=== PATIENT | female | born 1970 | race Caucasian/White ===

== ENCOUNTER → 2016-12-13 | Outpatient (REF) | payer MEDICARE ==
[2016-12-13 15:02] LABS: BILIRUBIN,URINE Negative (Negative); CLARITY,URINE Clear; GLUCOSE, URINE (UA) Negative (Negative); LEUKOCYTE ESTERASE ,URINE Negative (Negative); PH,URINE 5.5 (5.0 - 8.0); UROBILINOGEN,URINE 0.2 mg/dL (0.2-1.0)
[2016-12-13 15:14] LABS: COLOR,URINE Dark Yellow
[2016-12-13 15:48] LABS: URINE CENTRIFUGED VOLUME 12 mL
== END ==
LOC: LAB 14:24
PROVIDERS: ATTEND Family Medicine
DX: R30.0 Dysuria (principal)
CPT/HCPCS: 81003; 81015; 87077; 87088; 87186

== ENCOUNTER 2017-03-08 12:04 | Outpatient (RCR) | payer MEDICARE ==
[~2017-03-08 12:04] MED LIST: ABCT PO; ACET650T41 PO; ADAL10SY SQ; AMOX-358 PO; AZAT50TA PO; CALC600T12 PO; CEPH-507 PO; DIVA500T7; DVL500TEC PO; EPIN0.3P2 IM; EST075TD TD; ESTR1TAB15; FAMO20TA13 PO; FLC1T PO; FLUV100C; FLVX50T PO; HYDROXYSUT PO; IBUP200C PO; MULT-593 PO; NAPR250T PO; PHEN-640 PO; PRED10TA PO; PRED20TA PO; SULF500T7 PO; TRM50T PO; [UNRECOGNIZED DRUG - OTHER]
--- NOTE | 2017-03-09 09:27 | PT/OT/ST INITIAL EVALUATION ---
Department of Health and Human Services Form Approved Health Care Financing Administration OMB No. [id number] PLAN OF CARE/ASSESSMENT FOR OUTPATIENT REHABILITATION (Complete for Initial Claims Only) 1. PATIENT'S NAME Yumiko Scales 2. ACC # [id number] 3. KRISTIN DUKES 4. PROVIDER NO. [id number] 5. TYPE: PT 6. PRIOR HOSPITALIZATION None 7. PRIMARY DX Rheumatoid arthritis involving both feet and knees. 8. SECONDARY DX Chronic pain. 9. ONSET DATE A couple of years ago. 10. REFERRAL DATE 02/27/2017 11. SOC. DATE 03/08/2017 12. TIME OF EVAL 11:00 a.m. 12. REFERRING PHYSICIAN Warren Sheehan MD 13. CHARGES/UNITS Evaluation 14. G CODES CH 15. PRIOR LEVEL OF FUNCTION; PERTINENT HISTORY (Prior therapy results, reason for referral.) S: Reason for referral: The patient was referred to physical therapy by Dr. Sheehan with the diagnosis of rheumatoid arthritis involving both feet and knees and fibromyalgia and chronic pain. Description/mechanism of injury: The patient reports that she has flare ups at her knees and feet and is very fearful and insecure of falling. The patient has carried a cane, however, she does not know if she is using it correctly and wants to be instructed on proper gait training to help improve her balance and mobility. The patient is a farm . She lives in the counter in an older 3-story home. The patient does report pain ascending and descending stairs. The patient notes that her pain does change with changes in the weather. The patient works as a assistant director of security and is able to sit regularly throughout her day. Pain level: Current pain rating is 5/10. Past medical history: Includes a left lateral release and Bakers cyst removal at her knee. Current medications: See attached sheet. Personal health rating: Rates overall health as good. Patient's Goal: The patient's goal for therapy is to be able to use a cane when needed without making her rheumatoid arthritis worse. 16. INITIAL ASSESSMENT/SAFETY PRECAUTIONS/MEDICAL COMPLICATIONS (Level of function at start of care. Be specific, use objective measures, list problems.) O: APPEARANCE, OBSERVATION AND GAIT: The patient is a tall slender 46-year-old female. She ambulates into physical therapy carrying a purse and 2 canes. Slow gait is noted. PALPATION: The patient has tenderness to palpation at both anterior and posterior knee region. RANGE OF MOTION/FLEXIBILITY: Shoulder range of motion, wrists and elbow were normal limits. Lower extremity knee flexion and extension normal limits, however, the patient did have mild limitation with terminal knee extension. STRENGTH: Shoulder strength 5/5 manual muscle test. Knee extension 4+/5 manual muscle test with pain, knee flexion 4/5 manual muscle test with pain. TODAY'S TREATMENT: Treatment included evaluation and instruction on gait training using a single-point cane. The patient demonstrated improved balance and steadiness when using it in the left hand. She was able to coordinate her gait and madelyn with the cane. It did demonstrate improved steadiness for her. She is able to ascend and descend stairs, alternating steps using single-point cane. Also educated the patient on other types of adaptive equipment that possibly may benefit her down the road, as well as occupational therapy for joint preservation in the future. 17. INITIAL POC: (Specify procedures, modalities, short and adjunct faculty for medical terminology goals) A: PROGNOSIS: P: Plan on discharging the patient to independent use of single-point cane at this time. 18. FREQUENCY NA 19. DURATION NA 20. FUNCTIONAL LEVEL (End of claim period) 21. PHYSICIAN SIGNATURE ? ON FILE OR ENTER HERE: 22. DATE: I certify the need for these services furnished under this plan of care and if for partial hospitalization. 23. CERTIFICATION FROM THROUGH FORM [id number]
== END 2017-04-10 10:32 | disposition home or self-care (01) ==
LOC: PT 12:04
PROVIDERS: ATTEND Family Medicine
DX: M05.771 Rheumatoid arthritis with rheumatoid factor of right ankle and foot without organ or systems involvement (principal); M05.761 Rheumatoid arthritis with rheumatoid factor of right knee without organ or systems involvement; G89.29 Other chronic pain; M79.7 Fibromyalgia
CPT/HCPCS: 97161; G8978; G8979; G8980